=== PATIENT | female | born 1990 | race Hispanic/Latino ===

== ENCOUNTER 2023-12-01 17:43 | Emergency (ER) | payer SELFPAY ==
[2023-12-01 17:47] VITALS: BP 109/71
--- NOTE | 2023-12-01 18:21 | ED.GENMED ---
History of Present Illness
<Rossy Suarez PA-C - Last Filed: 12/02/23 11:02>
General
Chief Complaint: Abdominal Pain
Source: patient
Exam Limitations: none
Time Seen by Provider: 12/01/23 18:09
Nursing documentation reviewed up to this point in time: agreed with
Travel History
Have you had any contact with someone who has COVID-19?: No
Do you have any symptoms of coronavirus? Fever > 100 degrees, chills, cough, shortness of breath, sore throat, loss of taste or smell, muscle aches, or headache?: No
History of Present Illness
History of Present Illness:
This is a 33-year-old female with no past medical history is presenting emergency department today with concerns of vaginal bleeding and pelvic pain for the past 2 days. Patient states that she recently tested positive on a urine beta-hCG test at
home. Patient states that she has been trying to get for the past few years. Patient states that she was told many years ago by That she is unable to have children, however patient is not sure why this is. Patient also has associated
nausea. She denies vomiting, syncopal episodes, lightheadedness, dizziness, chest pain, shortness of breath. Denies hematuria, denies vaginal discharge. Patient has never gotten before. Patient currently does not have an TAPE STRINGER. She
does not have insurance. Patient's last menstrual period was 10/18/2023, she reports that her menstrual periods are regular.
Past History
<Rossy Suarez PA-C - Last Filed: 12/02/23 11:02>
Past History
ED Past Medical History: None
ED Past Surgical History: None
Social History
Tobacco: Non-smoker
Personal: Single
Living: with family
Employment: Employed
Review of Systems
<Rossy Suarez PA-C - Last Filed: 12/02/23 11:02>
Review of Systems
All Other Systems: ROS reviewed and negative except as documented in HPI and ROS
Phy Exam
<Rossy Suarez PA-C - Last Filed: 12/02/23 11:02>
Physical Exam
Physical Exam:
Vitals: Patient is well centered stable, patient is afebrile
General: Patient is well-appearing and no acute distress
Head: Normocephalic, atraumatic
Skin: Warm and dry, no rashes or lesions
Cardiac: Regular rate and rhythm, no murmurs
Pulm: Normal respiratory effort
Abdomen: Patient has tenderness palpation bilateral adnexal regions. Patient has no upper abdominal tenderness. Patient has no rebound tenderness, no guarding.
Neuro: AAOx3. CN II-XII intact.
Course
<Rossy Suarez PA-C - Last Filed: 12/02/23 11:02>
Orders/Labs/Results
Orders:
Orders
12/01/23 18:18
US W Transvaginal Urgent
Reason For Exam: pelvic pain + vaginal bleeding, home hcg +
12/01/23 18:29
Type+Screen Urgent
Complete Blood Count/With Diff Urgent
Comprehensive Metabolic Panel Urgent
HCG, Beta Quantitative [Beta HCG Quantitative] Urgent
Is this a screen?: No
Urinalysis Reflex To Culture Urgent
Date Specimen was Collected: 12/01/23
Time Specimen was Collected: 18:16
Urine Microscopic Reflex Cult Urgent
12/01/23 19:52
Cardiac Monitoring- Treatment ONCE
12/01/23 23:28
Chlamydia/GC by PCR Urgent
WILLIAM Source: Endo-Cervical
Specimen Description:
Source:: CERVIX
Date Specimen was Collected: 12/01/23
Time Specimen was Collected: 23:26
Abnormal Lab Results
03/20/24
18:29
Creatinine 0.5 L mg/dL
(0.6-1.0)
Glucose 107 H mg/dl
(70-99)
Total Protein 8.4 H g/dl
(6.3-8.2)
Leukocyte Esterase Rfl Trace A
(Negative)
12/01/23 18:29
12/01/23 18:29
Vital Signs
Initial and Last Documented VS:
Initial Vital Signs
Temp Pulse Resp BP Pulse Ox
98.7 F 83 18 109/71 100
12/01/23 17:47 12/01/23 17:47 12/01/23 17:47 12/01/23 17:47 12/01/23 17:47
Last Documented Vital Signs
Temp Pulse Resp BP Pulse Ox
98.7 F 74 18 122/62 98
12/01/23 17:47 12/01/23 23:34 12/01/23 23:34 12/01/23 23:34 12/01/23 23:34
<Gregg Rodríguez, DO - Last Filed: 12/01/23 23:07>
Orders/Labs/Results
Orders:
Orders
12/01/23 18:18
US W Transvaginal Urgent
Reason For Exam: pelvic pain + vaginal bleeding, home hcg +
12/01/23 18:29
Type+Screen Urgent
Complete Blood Count/With Diff Urgent
Comprehensive Metabolic Panel Urgent
HCG, Beta Quantitative [Beta HCG Quantitative] Urgent
Is this a screen?: No
Urinalysis Reflex To Culture Urgent
Date Specimen was Collected: 12/01/23
Time Specimen was Collected: 18:16
Urine Microscopic Reflex Cult Urgent
12/01/23 19:52
Cardiac Monitoring- Treatment ONCE
12/01/23 23:28
Chlamydia/GC by PCR Urgent
[facility]IAM Source: Endo-Cervical
Specimen Description:
Source:: CERVIX
Date Specimen was Collected: 12/01/23
Time Specimen was Collected: 23:26
Abnormal Lab Results
12/01/23
18:29
Creatinine 0.5 L mg/dL
(0.6-1.0)
Glucose 107 H mg/dl
(70-99)
Total Protein 8.4 H g/dl
(6.3-8.2)
Leukocyte Esterase Rfl Trace A
(Negative)
12/01/23 18:29
12/01/23 18:29
Vital Signs
Initial and Last Documented VS:
Initial Vital Signs
Temp Pulse Resp BP Pulse Ox
98.7 F 83 18 109/71 100
12/01/23 17:47 12/01/23 17:47 12/01/23 17:47 12/01/23 17:47 12/01/23 17:47
Last Documented Vital Signs
Temp Pulse Resp BP Pulse Ox
98.7 F 74 18 122/62 98
12/01/23 17:47 12/01/23 23:34 12/01/23 23:34 12/01/23 23:34 12/01/23 23:34
<Rossy Suarez PA-C - Last Filed: 12/02/23 11:02>
MDM/Problems Addressed
Differential Diagnosis Includes:
Differentials include implantation bleeding, threatened , ectopic ,
MDM/Problems Addressed:
Pelvic pain
Vaginal bleeding
<Rossy Suarez PA-C - Last Filed: 12/02/23 11:02>
*Critical Care Note
Total Time (30-74mins, 75-104mins- exclusive of procedures): Not Applicable
<Gregg Rodríguez DO - Last Filed: 12/01/23 23:07>
Update Note
Update Note:
The patient was seen by TAPE STRINGER Dr. Blue at 11 PM. The patient is very well-appearing with virtually no significant findings on exam. However follow-up is going to be difficult for her. Dr. Lara and I agreed that the patient should come back
here on Wednesday for repeat ultrasound and hCG testing.
ED Attending Note
<Rossy Suarez PA-C - Last Filed: 12/02/23 11:02>
-
Portions of this chart may have been created with voice recognition software.� Occasional wrong word or��sound alike� substitutions may have occurred due to the inherent limitations of voice recognition software.
<Gregg Rodríguez DO - Last Filed: 12/01/23 23:07>
ED Attending Note
Patient seen and examined by attending physician: Yes
I performed the substantive portion of visit, reviewed & personally made and approve the management plan that is documented in note by myself or ALIE.: Yes
I performed a history and physical exam of patient and discussed management with resident, I reviewed resident's note and agree with documented findings and plan of care.: Yes
ED Attending Note:
I evaluated the patient at bedside. The patient currently appears comfortable and she is hemodynamically stable however workup is concerning for an interstitial ectopic . I notified Dr. Blue at 8:49 PM. The patient's hCG is 4508.
Patient has O+ blood type.
Discharge Plan
Departure
Patient Disposition: Home (Routine Discharge)
Date of Disposition: 12/01/23
Time of Disposition: 23:01
Patient with high blood pressure during this ER visit?: No
Discharge Problem:
Instructions: Ectopic ED
Prescriptions:
No Action
hydrocodone-acetaminophen 1 TABLET tablet
1 tab PO Q4HPRN PRN (Reason: severe pain) Qty: 8 0RF
Referrals:
Ngerita Blue DO [Active] - Follow up in 2-3 days
NONE,* [Family Provider] -
Activity Restrictions/Additional Instructions:
Return here Wednesday for reassessment. We will repeat hCG testing and ultrasound imaging. Return here earlier if worse.
Interventions
Interventions:
*Risk Screen - Suicide Last Done: 12/01/23 18:19
*General Assessment Last Done: 12/01/23 18:19
*Neglect/Abuse Screening Last Done: 12/01/23 18:19
ED- Fall Risk Assessment Last Done: 12/01/23 18:19
*ED COVID-19 Vaccine History Last Done: 12/01/23 17:47
*Nursing Disposition Last Done: 12/01/23 23:34
BC-Hbvozz-Pokcysrert Assessment Last Done: 12/01/23 18:19
Discharge Date and Time
Discharge Date/Time: 12/01/23 23:35
Print Language: WELSH
[2023-12-01 18:43] LABS: Urine Albumin Negative (Neg - Trace); Urine Bilirubin Negative (Negative); Urine Character Clear (Clear); Urine Color Yellow; Urine Glucose Negative (Negative); Urine Ketone Negative (Negative); Urine Leukocyte Trace (Negative); Urine Nitrite Negative (Negative); Urine Occult Blood Negative (Negative); Urine Urobilinogen 1+ (Neg - 1+)
[2023-12-01 18:45] LABS: % Basophils 0.2 % (0-2); % Eosinophils 0.8 % (0-6); % Immature Granulocytes 0.2 % (0-0.5); % Lymphocytes 23.8 % (20.5-51.1); % Monocytes 5.1 % (1.7-9.3); % Neutrophils 69.9 % (42.2-75.2); Absolute Eosinophils 0.1 10^3/uL (0-0.7); Absolute Lymphocytes 2.2 10^3/uL (1.2-3.4); Absolute Monocytes 0.5 10^3/uL (0.1-0.6); Absolute Neutrophils 6.5 10^3/uL (1.4-6.5); Hematocrit 40.4 % (37.0-47.0); Mean Corp Hgb Conc. 34.7 g/dL (33.0-37.0); Mean Corpuscular Hgb 30.9 pg (27.0-31.0); Mean Corpuscular Volume 89.2 fL (81.0-99.0); Mean Platelet Volume 9.8 fL (7.4-10.4); Nucleated Red Blood Cells % 0 %; Platelet Count 287 10^3/uL (130-400); Red Blood Cell Count 4.53 10^6/uL (4.20-5.40); Red Cell Dist. Width 12.3 % (11.5-14.5); White Blood Cell Count 9.3 10^3/uL (4.8-10.8)
[2023-12-01 18:49] LABS: Urine Squamous Cell >30 /LPF (Few)
[2023-12-01 18:50] LABS: ALT (SGPT) 14 U/L (0-35); AST (SGOT) 17 U/L (14-36); Alkaline Phosphatase 82 U/L (38-126); Blood Urea Nitrogen 14 mg/dl (7-17); Calcium 9.8 mg/dl (8.4-10.2); Carbon Dioxide 24 mmol/L (22-30); Chloride 101 mmol/L (98-107); Glucose 107 mg/dl (70-99); Potassium 3.6 mmol/L (3.5-5.1); Sodium 136 mmol/L (135-145); Total Bilirubin 0.4 mg/dl (0.2-1.3); Total Protein 8.4 g/dl (6.3-8.2); Urine Red Blood Cell None Seen /HPF (0-2); eGFR > 60.00
--- NOTE | 2023-12-01 23:06 | CON.MD ---
Consultation - Medical
-
PRICING CONSULTANT Consult Note
CC: vaginal spotting,
HPI: Pt is a 33yo at 6+3wks by sure LMP (05FEB) presenting to the [facility] because she had some light vaginal spotting 3 days ago. Had intercourse prior to that spotting. No heavy bleeding. No continued bleeding. No pain at all. She tried to
get for 8yrs in the past and was told she probably could not have children, but was not given a reason. She does not have a regular PRICING CONSULTANT so she wanted to come into the hospital to get checked out once she had a positive test and
the spotting episode. No other complaints and feels generally well.
ROS: +vaginal spotting, now resolved. Denies f/c, dizziness, CP, SOB, abdominal pain, n/v/d/c, abnormal vaginal discharge, vaginal irritation, vaginal lesions, urinary sx.
Meds: denies
NKDA
PMH denies
PSH denies
ObHx: G1
GynHx: denies STIs or abn paps; h/o infertility (unexplained?); h/o regular monthly periods
Social: has a boyfriend. She is from [facility], does not have health insurance. Denies T/E/I
FmHx: non-contributory
PE:
See VS below
Gen: NAD, WD/WN
Abd: soft, NTTP, ND
SSE: NEFG, normal vagina, cervix normal appearing except slightly friable when touched with the swab, no blood or abnormal discharge in vault, cervix closed; GC/CT swab obtained and sent to lab
Bimanual: 6wk uterus, normal contour, mobile, no mass, no adnexal mass, no CMT, no uterine or adnexal TTP
See Labs below
See imaging below
A/P 33yo at 6+3wks by LMP with IUP on US c/w 6+0wks with +FCA, but GS has eccentric/right fundal location concerning for possible cornual ectopic .
Pt is hemodynamically stable with no pelvic pain and no mass or TTP on exam.
Vaginal spotting 3 days ago after intercourse likely from friable cervix. No VB on exam. Cervix closed. GC/CT swab sent to lab. Rh pos.
I spoke directly to the radiologist that read the US and reviewed the US images personally. It appears the GS is a bit eccentric in location, but the diagnosis of cornual ectopic is not certain and the radiologist agrees that intervention at this
time (without symptoms, of course) would be premature. As the patient is asymptomatic and stable, I recommend very close follow-up with repeat HCG quant and TVUS in about 48hrs.
Patient understands that this may be in an abnormal location and that, of so, it could rupture and cause life-threatening hemorrhage. She was instructed to avoid strenuous activity and abide by pelvic rest until the location of the
is confirmed. she understands that if a cornual ectopic is ultimately diagnosed, she will need surgery to address the issue. She was instructed to return to the ER promptly if she develops any pain, dizziness or other emergent concerns.
Patient will come to the ER on Wednesday for follow-up (ER Dr. Rodríguez is working that day and is aware), and will have repeat HCG quant and TVUS at that time to reassess. I will notify the on-call PRICING CONSULTANT doctor for [facility], as
well.
60min spent counseling and coordinating care, speaking with the ER physician and radiologist, reviewing chart and documenting.
Juvencio, DO
Vital Signs / Labs
-
Vital Signs and Labs:
Temp Pulse Resp BP Pulse Ox
98.7 F 83 18 109/71 100
12/01/23 17:47 12/01/23 17:47 12/01/23 17:47 12/01/23 17:47 12/01/23 17:47
LABS:
HCG quant 4508
O pos
12/01/23 18:29
12/01/23 18:29
12/01/23
18:29
Creatinine 0.5 L
Glucose 107 H
Total Protein 8.4 H
Leukocyte Esterase Rfl Trace A
Imaging Data
-
SignedOrder #:[id number]
Exams:� US W Transvaginal
PROCEDURE: US W Transvaginal
CLINICAL INDICATION: Pelvic pain. Vaginal bleeding. Positive home test.
TECHNIQUE: A transabdominal and transvaginal ultrasound examination of the pelvis was performed targeted to the gravid uterus.
COMPARISON: Comparison is made with a prior ultrasound examination of the pelvis performed 02/27/2017.
FINDINGS:
The uterus measures 9.3 x 4.8 x 6.5 cm in size. The endometrium measures 1.0 cm in thickness on the transvaginal images. There is a gestational sac eccentrically located in the right lateral uterine fundus. There is a yolk sac and pole within
the gestational sac. The crown-rump length of the pole predicts a gestational age of 6 weeks 0 days. There is a heartbeat measuring 95-115 bpm. There is no sonographic evidence for subchorionic hemorrhage.
There is a small amount of peritoneal fluid in the pelvis. The right ovary measures 2.7 x 2.1 x 2.8 cm in size. The left ovary measures 3.3 x 2.6 x 3.1 cm in size. There are small follicles in both ovaries. There appears be collapsed corpus luteal
cyst in the left ovary.
IMPRESSION:
Gestational sac in an eccentric position in the right lateral uterine fundus containing a pole and yolk sac. The eccentric location is suspicious for an INTERSTITIAL ECTOPIC .
The findings were communicated to Gregg Rodríguez DO of the Emergency Department on 12/01/2023 at 8:38 PM through [employer].
Electronically signed by Goran Herman MD 12/01/2023 8:44 PM
Dictated By: Goran Herman MD
Dictated Date & Time: 12/01/232030
Signed/Co-Signer By: Goran Herman MD /
Signed/Co-Signer Date & Time: 12/01/232043 /
Transcribed by: Goran Herman
[2023-12-01 23:34] VITALS: BP 122/62
== END 2023-12-01 23:35 | disposition home or self-care (01) ==
LOC: EMR 17:43
PROVIDERS: Physician Assistant; EMERGENCY PHYSICIAN Emergency Medicine; OTHER PHYSICIAN Obstetrics & Gynecology
DX: O20.9 Hemorrhage in early pregnancy, unspecified (principal); O26.891 Other specified pregnancy related conditions, first trimester; Z3A.01 Less than 8 weeks gestation of pregnancy; R11.0 Nausea; Z59.7 Insufficient social insurance and welfare support
CPT/HCPCS: 99284; 76801; 76817; 80053; 81003; 81015; 84702; 85025; 86850; 86900; 86901; 87491; 87591